=== PATIENT | male | born 1960 | race Two or more races ===

== ENCOUNTER 2017-01-07 13:38 | Emergency (ER) | payer SELFPAY ==
--- NOTE | 2017-01-07 13:56 | VNOTE ---
CALL BACK NOTE CALL BACK 56-year-old male presenting to the emergency department today via EMS after having seizure-like activity becoming postictal and returning to baseline neurologic condition. Upon arrival to our emergency department the family of the patient, his son, called our emergency department trying to contact the paramedics to bring the patient to the [facility] because of his medical insurance. The son did not want the patient to be seen in our emergency department. Unfortunately, because the patient was on our grounds we performed a medical screening examination of the patient. Vital signs. Blood pressure 133/ 68. Afebrile. Temperature 98.5. Heart rate 78. Saturating 99% on room air. Respiratory rate 16. Physical Exam: Constitutional: No acute distress HEENT: Head normocephalic and atraumatic. PERRL, EOMI. No scleral icterus or erythema. Mucous membranes moist CV: palpable pulse. reg rate with a regular rhythm. Respiratory: not in respiratory distress Abdomen nontender Skin: Normal color. Psych: Makes good eye contact. Affect is congruent mood. Neuro: Mental status: Awake alert Cranial nerves: Extraocular movements intact, eyebrows adis bilaterally smile symmetric, uvula elevation, shoulder shrug intact, tongue protrusion normal Sensation: equal and normal in all extremities Strength: 5/5 in upper and lower extremities bilaterally Assessment and plan: The patient will be transferred to the [facility] by EMS. Patient stable for transfer. Discussed the case with accepting provider. ADRIANA BRUNSON MD Jan 07, 2017 13:56
[2017-01-07 14:43] VITALS: BP 154/68
== END 2017-01-07 15:07 | disposition short-term general hospital (02) ==
LOC: ER 13:38
DX: R56.9 Unspecified convulsions (principal)
CPT/HCPCS: 99285